=== PATIENT | female | born 1975 | race Caucasian/White ===

== ENCOUNTER 2022-06-05 03:20 | Emergency (ER) | payer OTHER, SELFPAY ==
--- NOTE | 2022-06-05 03:49 | ED.FEMALEGU ---
HPI - Female Genitourinary General Chief complaint: Urogenital-Female Stated complaint: kidney pain x1 hour Time Seen by Provider: 06/05/22 03:35 History of Present Illness HPI Narrative: 46-year-old female nonsmoker with history of kidney stones presents with a chief complaint of sudden onset severe sharp and stabbing right lower back pain with radiation around to her groin. She states that there is no obvious provocation or palliation. She denies dysuria, frequency or urgency. She denies any injury. She states this feels similar to a prior kidney stone that happened many years ago which did not require any surgical intervention. She can not find a position of comfort and finds herself pacing. She is otherwise well and free of complaint and denies any runny nose, sore throat or cough. She is had no chest pain or shortness of breath. She denies fever or shaking chills Related Data Previous Rx's Medication Instructions Recorded cephalexin 500 mg capsule 500 mg PO BID #10 caps 06/05/22 hydrocodone 5 mg-acetaminophen 325 1 tab PO Q4-6H PRN pain #20 tabs 06/05/22 mg tablet ondansetron 4 mg disintegrating 4 mg PO TID-QID PRN nausea and 06/05/22 tablet vomiting #10 tabs tamsulosin 0.4 mg capsule (Flomax) 0.4 mg PO DAILY #30 caps 06/05/22 Allergies Allergy/AdvReac Type Severity Reaction Status Date / Time hydrocodone AdvReac ITCHING Verified 06/05/22 05:51 Review of Systems Review of Systems Narrative: GENERAL: See HPI HEENT: Denies sinus pain, ear pain, sore throat, difficulty swallowing, dizziness. RESPIRATORY: Denies dyspnea, cough, wheezing, hemoptysis, sputum. CARDIOVASCULAR: Denies chest pain, palpitations, orthopnea, edema, GASTROINTESTINAL: See HPI : See HPI MUSCULOSKELETAL: See HPI SKIN: Denies rash, skin lesions, or other NEUROLOGIC: Denies weakness, headache, numbness, change in speech, confusion, seizures, incoordination. PSYCHIATRIC: No concerning psychosocial issues. 12 point review of systems is negative except for those stated above Exam Narrative Exam Narrative: GENERAL: [46] year old patient appears stated age. Well-developed patient, in obvious distress, pacing in the room, holding an emesis bag and rubbing her right flank HEAD: Atraumatic. Normocephalic. EYES: Pupils equal round and reactive. Extraocular motions intact. No scleral icterus. No injection or drainage. ENT: Nose without bleeding, purulent drainage. Throat without erythema, tonsillar hypertrophy or exudate. Airway patent. NECK: Trachea midline. Non tender CARDIOVASCULAR: Regular rate and rhythm without murmurs, gallops, or rubs. RESPIRATORY: Clear to auscultation. Breath sounds equal bilaterally. No wheezes, rales, or rhonchi. GASTROINTESTINAL: Abdomen soft, non-tender, nondistended. EXTREMITIES: No edema or joint tenderness. BACK: Nontender without deformity or crepitance. No flank tenderness. NEURO: AOx3. SKIN: No rash or erythema of visible areas Initial Vital Signs Initial Vital Signs: Vital Signs Temperature 98.7 F 06/05/22 03:58 Pulse Rate 93 H 06/05/22 03:58 Respiratory Rate 18 06/05/22 03:58 Blood Pressure 132/83 06/05/22 03:58 Pulse Oximetry 100 06/05/22 03:58 Oxygen Delivery Method 06/05/22 03:58 Course Orders Ordered: ED Orders 06/05/22 04:00 Complete Blood Count AUTO DIFF Stat Comprehensive Metabolic Panel Stat 06/05/22 04:55 CT kidney ureter bladder (KUB) Stat 06/05/22 05:05 Urine Microscopic Stat Discontinued Medications Hydrocodone Bitart/Acetaminophen (Hydrocodone/Acet 5/325 Prepack) 1 bottle MISC SEEINSTR ONE Stop: 06/05/22 05:46 Hydromorphone HCl (Hydromorphone 0.5 Mg Inj) 0.5 mg IV NOW ONE Stop: 06/05/22 04:53 Last Admin: 06/05/22 04:58 Dose: 0.5 mg Documented By: LIZETTE Sodium Chloride (Normal Saline 0.9%) 1,000 mls @ 1,000 mls/hr IV BOLUS ONE Stop: 06/05/22 04:48 Last Admin: 06/05/22 04:02 Dose: 1,000 mls/hr Documented By: LIZETTE Lidocaine HCl 6.8 ml/ Sodium (Chloride) 56.8 mls @ 340.8 mls/hr IV NOW ONE Stop: 06/05/22 04:15 Last Infusion: 06/05/22 05:04 Dose: 0 mls/hr Documented By: Admin: 06/05/22 04:41 Dose: 340.8 mls/hr Documented By: TORRIE Ketorolac Tromethamine (Ketorolac 30 Mg/Ml Vial) 15 mg IV NOW ONE Stop: 06/05/22 03:50 Last Admin: 06/05/22 04:02 Dose: 15 mg Documented By: LIZETTE Ondansetron HCl (Ondansetron 4 Mg/2 Ml Inj) 4 mg IV NOW ONE Stop: 06/05/22 03:50 Last Admin: 06/05/22 04:02 Dose: 4 mg Documented By: LIZETTE Ondansetron HCl (Ondansetron 4 Mg Odt Prepack) 1 bottle MISC SEEINSTR ONE Stop: 06/05/22 05:46 Tamsulosin HCl (Tamsulosin 0.4 Mg Capsule) 0.4 mg PO NOW ONE Stop: 06/05/22 04:53 Last Admin: 06/05/22 04:58 Dose: 0.4 mg Documented By: LIZETTE Vital Signs Vital signs: Vital Signs - 8 hr 06/05/22 03:58 Temperature 98.7 F Pulse Rate 93 H Respiratory Rate 18 Blood Pressure 132/83 Pulse Oximetry 100 Oxygen Delivery Method Room Air MDM - Female Genitourinary Lab Data Result diagrams: 06/05/22 04:00 06/05/22 04:00 Labs: Lab Results 06/05/22 06/05/22 06/05/22 Range/Units 04:00 04:00 05:05 WBC 9.0 (4.5-11.0) X10^3/uL RBC 4.36 (4.0-5.2) X10^6/uL Hgb 13.3 (12.0-16.0) g/dL Hct 38.5 (36-46) % MCV 88.4 (80-100) fL MCH 30.5 (26-34) PG MCHC 34.5 (30-36) % RDW 13.2 (11.6-14.8) % Plt Count 284 (150-400) X10^3/uL Neut % (Auto) 51.8 (50-75) % Lymph % (Auto) 38.6 (25-40) % [place] % (Auto) 6.9 (3-14) % Eos % (Auto) 1.8 L (2-4) % Baso % (Auto) 0.9 (0-2) % Neut # (Auto) 4700 (0226-9009) /uL Lymph # (Auto) 3500 (6288-3389) /uL [place] # (Auto) 600 (0-900) /uL Eos # (Auto) 200 (0-450) /uL Baso # (Auto) 100 (0-100) /uL Sodium 138 (137-145) mmol/L Potassium 3.6 (3.4-5.1) mmol/L Chloride 106 (98-107) mmol/L Carbon Dioxide 19 L (22-32) mmol/L BUN 12 (7-17) mg/dL Creatinine 0.64 (0.52-1.04) mg/dL Estimated GFR > 60 (>60) mL/min BUN/Creatinine Ratio 18.8 (6-22) Glucose 130 H (70-100) mg/dL Calcium 8.8 (8.4-10.2) mg/dL Total Bilirubin 0.7 (0.2-1.3) mg/dL AST 26 (14-36) IU/L ALT 18 (<35) IU/L Alkaline Phosphatase 85 (38-126) U/L Total Protein 7.1 (6.3-8.2) g/dL Albumin 4.2 (3.5-5.0) g/dL Globulin 2.9 (1.7-4.1) g/dL Albumin/Globulin Ratio 1.4 (1.0-2.8) Urine RBC 1-5/hpf (0-5/HPF) Urine WBC 0-1/hpf (0-5/HPF) Ur Squamous Epith Cells 10-30 /hpf H (0-5/HPF) Urine Bacteria Moderate (10-30) H (None) Ur Culture Indicated? Cult not indicated Micro UA Comment * Point of Care Testing Test Results Negative Urine Dip Bedside Urine Glucose Negative Bedside Urine Bilirubin - Negative Bedside Urine Ketone +/- 5 Urine Specific [place] 1.030 Bedside Urine Occult Blood +++ Bedside Urine pH 6.0 Bedside Urine Protein - Negative Bedside Urine Urobilinogen - Negative Bedside Urine Nitrite - Negative Bedside Urine Leukocytes - Negative Esterase Imaging Data CT scan - abdomen/pelvis: Radiologist's Impression: Moderate right-sided hydroureteronephrosis with a 3 mm distal right ureteral calculus. MDM Narrative Medical decision making narrative: Patient's pain is well controlled and she is tolerating orals, she shows no signs of sepsis nor acute kidney injury. She is appropriate for discharge, prescription sent to her pharmacy of choice, return precautions discussed and questions answered to her apparent satisfaction Discharge Plan Departure Patient Disposition: Home Clinical Impression: Kidney calculi Instructions: DI for Kidney Stones Activity Restrictions/Additional Instructions: *You have been diagnosed with [3 mm right-sided kidney stone with moderate hydroureteronephrosis] *What to do: *Please continue to take your regular medications as directed. [x ] New medication prescriptions sent to your pharmacy: [ [facility]] [ ] New medication written as a paper prescription [ ] No new medications given *Please follow up with your primary care provider in 2-3 days, call for an appointment. Let them know you were seen in the Emergency Department and that we ask that you be seen in follow up. We will electronically transmit a record of today's note if your PCP is in our system * also, as we discussed it would be reasonable to follow-up with the local urology group. I have included their contact info below. Please call later today and let them know you were seen in the emergency department and we would like you seen in follow-up *Return to Emergency Department if you should have any new, worsening or concerning symptoms, such as [fever greater than 101 F, shaking chills, worsening pain, persistent vomiting or other bothersome symptoms] Prescriptions: New hydrocodone-acetaminophen 5-325 mg tablet 1 tab PO Q4-6H PRN (Reason: pain) Qty: 20 0RF tamsulosin [Flomax] 0.4 mg capsule 0.4 mg PO DAILY Qty: 30 0RF cephalexin 500 mg capsule 500 mg PO BID Qty: 10 0RF ondansetron 4 mg tablet,disintegrating 4 mg PO TID-QID PRN (Reason: nausea and vomiting) Qty: 10 0RF Referrals: Lorrie Fuchs MD [Physician] - Meli Huggins MD [Primary Care Provider] -
[2022-06-05 03:58] VITALS: BP 132/83; PULSE 93; RESP 18; TEMP 37.1; O2SAT 100; BMI 34.3
[2022-06-05] MEDS: ONDANSETRON 4 MG/2 ML INJ IV (04:02)
[2022-06-05] MEDS: KETOROLAC 30 MG/ML VIAL 15 MG IV (04:02)
[2022-06-05] MEDS: SODIUM CHLORIDE 0.9% 1,000 ML 1000 ML IV (04:02)
[2022-06-05 04:15] LABS: Add Manual Diff / Slide Review NO; Basophils Absolute Auto 100 /uL (0-100); Basophils Percent Auto 0.9 % (0-2); Eosinophils Absolute Auto 200 /uL (0-450); Eosinophils Percent Auto 1.8 % (2-4); Hematocrit 38.5 % (36-46); Hemoglobin 13.3 g/dL (12.0-16.0); Lymphocytes Absolute Auto 3500 /uL (1100-4500); Lymphocytes Percent Auto 38.6 % (25-40); Mean Corpuscular HGB Conc 34.5 % (30-36); Mean Corpuscular Hemoglobin 30.5 PG (26-34); Mean Corpuscular Volume 88.4 fL (80-100); Monocytes Absolute Auto 600 /uL (0-900); Monocytes Percent Auto 6.9 % (3-14); Neutrophils Absolute Auto 4700 /uL (1500-7000); Neutrophils Percent Auto 51.8 % (50-75); Platelet Count 284 X10^3/uL (150-400); Red Blood Cell Count 4.36 X10^6/uL (4.0-5.2); Red Cell Distribution Width 13.2 % (11.6-14.8)
[2022-06-05 04:22] LABS: Alanine Aminotransferase 18 IU/L (<35); Albumin 4.2 g/dL (3.5-5.0); Albumin Globulin Ratio 1.4 (1.0-2.8); Alkaline Phosphatase 85 U/L (38-126); Aspartate Aminotransferase 26 IU/L (14-36); BUN Creatinine Ratio 18.8 (6-22); Bilirubin Total 0.7 mg/dL (0.2-1.3); Blood Urea Nitrogen 12 mg/dL (7-17); Calcium 8.8 mg/dL (8.4-10.2); Carbon Dioxide 19 mmol/L (22-32); Chloride 106 mmol/L (98-107); Estimated Glomerular Filt Rate > 60 mL/min (>60); Globulin 2.9 g/dL (1.7-4.1); Glucose 130 mg/dL (70-100); HEMOLYSIS < 15 (0-50); Potassium 3.6 mmol/L (3.4-5.1); Sodium 138 mmol/L (137-145); Total Protein 7.1 g/dL (6.3-8.2)
[2022-06-05] MEDS: LIDOCAINE 2% 6.8 ML in SODIUM CHLORIDE 0.9% 50 ML 340.8 ML IV (04:41)
--- NOTE | 2022-06-05 04:55 | DI.CT.S_ITS ---
PROCEDURE: CT KIDNEY URETER BLADDER (KUB) INDICATIONS: severe flank pain TECHNIQUE: Axial sections were acquired from the lung bases to the pubic symphysis. Coronal and sagittal reformats were performed. For radiation dose reduction, the following was used: automated exposure control, adjustment of mA and/or kV according to patient size. COMPARISON: None. FINDINGS: Image quality: Excellent. Lung bases: Unremarkable. Heart: No significant findings. URINARY: Right Kidney/ureter: Multiple punctate right-sided renal stones are noted measuring approximately 3 mm in maximum size. There is a 3 mm obstructing stone noted in the distal right ureter a short distance proximal to the right ureterovesicular junction. There is mild right hydroureteronephrosis. No significant perinephric or periureteral stranding. Left Kidney: No stones or hydronephrosis. Left Ureter: No hydroureter. Bladder: Normal wall thickness. No stones. ABDOMEN: Liver: Unremarkable. Gallbladder: There are small dependent gallstones near the gallbladder neck. No CT evidence for acute cholecystitis. Biliary ducts: Unremarkable. Pancreas: Unremarkable. Spleen: Unremarkable. Adrenal Glands: Unremarkable. Stomach and Bowel: There are postsurgical changes from prior gastric bypass procedure. Otherwise, the stomach, small bowel loops, and colon are unremarkable. Peritoneum: No abnormal intraperitoneal fluid. No free air. Ventral Wall: No hernia. Abdominal Nodes: No enlarged retroperitoneal or mesenteric lymph nodes. Vessels: Aorta and inferior vena cava are normal in size. PELVIS: Pelvic Organs: Unremarkable. An IUD is present. Pelvic Nodes: Unremarkable. Miscellaneous: No inguinal hernias are seen. Bones: Unremarkable. IMPRESSION: 1. Obstructing 3 mm distal right ureteral stone with associated mild right hydroureteronephrosis. No significant perinephric or periureteral stranding. Additional small punctate right-sided stones noted in the kidney measuring up to 3 mm in size. 2. Cholelithiasis without CT evidence for acute cholecystitis. 3. Postsurgical changes of prior gastric bypass procedure. No significant discrepancy with the assembler 1st shift radiology preliminary report. Dictated by: Omar Siu M.D. on 06/05/2022 at 7:38 Approved by: Omar Siu M.D. on 06/05/2022 at 7:43
[2022-06-05] MEDS: HYDROMORPHONE 0.5 MG INJ IV (04:58)
[2022-06-05] MEDS: TAMSULOSIN 0.4 MG CAPSULE PO (04:58)
[2022-06-05 05:28] LABS: RBC Urine 1-5/HPF (0-5/HPF); Squamous Epithelial Cell Urine 10-30 /HPF (0-5/HPF); WBC Urine 0-1/HPF (0-5/HPF)
[2022-06-05 05:29] LABS: Bacteria Urine Moderate (10-30); Culture Indicated Urine Cult Not Indicated
[2022-06-05] MEDS: ONDANSETRON 4 MG ODT PREPACK 1 BOTTLE MISC (05:57)
[2022-06-05] MEDS: HYDROCODONE/ACET 5/325 PREPACK 1 BOTTLE MISC (05:57)
== END 2022-06-05 05:58 | disposition home or self-care (01) ==
PROVIDERS: Emergency Provider Emergency Medicine; PCP Internal Medicine Geriatric Medicine
DX: N20.0 Calculus of kidney (principal); Z87.442 Personal history of urinary calculi
CPT/HCPCS: 36415; 74176; 80053; 81003; 81015; 81025; 85025; 96365; 96375; 99284; J1170; J1885; J2405